=== PATIENT | female | born 1960 | race Caucasian/White ===

== ENCOUNTER → 2018-04-10 | Outpatient (CLI) | payer OTHER ==
[~2018-04-10] MED LIST: IOPAMIDOL (ISOVUE-300) 150 ML BTL ONE
== END ==
LOC: FIMAGING 14:35
PROVIDERS: ATTEND Internal Medicine
DX: R31.9 Hematuria, unspecified (principal); R10.32 Left lower quadrant pain; N28.89 Other specified disorders of kidney and ureter
CPT/HCPCS: Q9967